=== PATIENT | male | born 1970 | race Asian ===

== ENCOUNTER 2018-07-14 14:45 | Emergency (ER) | payer MEDICARE ==
[~2018-07-14] VITALS: Ht 175.3 cm; Wt 115.0 kg
[~2018-07-14 14:45] MED LIST: ALLOPURINOL100 MG PO; AMLODIPINE10 MG PO; CLONIDINE0.1 MG PO; CLONIDINE0.3 MG OR; COLCHICINE0.6 MG PO; KALEXATE OR; MEDDOSEPAK OR; PREDNISONE10 MG PO; STERAPRED OR; STERAPRED5 MG OR; TOPROL XL25 M1 PO; TOPROL XL50 MG PO; ZEMPLAR1 MCG PO
[2018-07-14] MEDS ORDERED: ASTAGRAF XL1 MG PO (15:33)
[2018-07-14 16:08] LABS: HEMATOCRIT 45.4 % (39.0-50.0); HEMOGLOBIN 15.5 g/dl (14.0-18.0); IMMATURE GRANULOCYTES 0.3 % (0.0-5.0); MEAN CELL VOLUME 94.2 fL CALC (80.0-100.0); MEAN CORPUSCULAR HGB 32.2 pG CALC (26.0-32.0); MEAN CORPUSCULAR HGB CONC 34.1 g/L CALC (32.0-36.0); NEUT# 2.29 thou/uL (1.82-7.42); RED BLOOD COUNT 4.82 mill/uL (4.70-6.10); RED CELL DISTRI WIDTH 12.6 % (11.5-15.5)
[2018-07-14 16:28] LABS: ALBUMIN 4.6 g/dL (3.2-5.0); BILIRUBIN, TOTAL 0.8 mg/dL (0.0-1.4); BUN 22 mg/dL (9-20); CARBON DIOXIDE 27 mmol/l (22-30); CHLORIDE 97 mmol/l (95-108); TOTAL PROTEIN 7.9 g/dL (6.3-8.2)
[2018-07-14 16:32] LABS: ALKALINE PHOSPHATASE 109 u/l (38-126); ANION GAP 16 (6-22 (CALC)); BUN/CREATININE RATIO 18 (12-20 (CALC)); CREATININE 1.2 mg/dL (0.7-1.3); GFR > 60 ML/MIN (>=60 (CALC)); GFR FOR AFR.AMER. > 60 ML/MIN (>=60 (CALC)); POTASSIUM 3.5 mmol/l (3.5-5.1); SGOT/AST 62 u/l (17-59); SODIUM 136 mmol/l (137-146)
[2018-07-14] MEDS ORDERED: VALCYTE450 MG PO (17:02)
[2018-07-14] MEDS ORDERED: MYFORTIC360 MG PO (17:02)
[2018-07-14] MEDS ORDERED: METOPROL TAR25 MG PO (17:03)
[2018-07-14] MEDS ORDERED: FAMOTIDINE20 M1 PO (17:03)
[2018-07-14] MEDS ORDERED: NIFEDIPINE30 MG PO (17:03)
[2018-07-14] MEDS ORDERED: FUROSEMIDE20 MG PO (17:04)
[2018-07-14 18:14] LABS: URINE BILIRUBIN - DIPSTICK NEGATIVE (NEGATIVE); URINE BLOOD DIPSTICK NEGATIVE (NEGATIVE); URINE COLOR YELLOW; URINE GLUCOSE - DIPSTICK NEGATIVE (NEGATIVE); URINE KETONE NEGATIVE (NEGATIVE); URINE LEUK ESTERASE NEGATIVE (Negative); URINE NITRITE - DIPSTICK NEGATIVE (Negative); URINE PH 6.5 (4.5-8.0); URINE PROTEIN - DIPSTICK NEGATIVE (NEG-TRACE); URINE UROBILINOGEN - DIPSTICK 0.2 E.U./dL (0.2)
[2018-07-14 18:15] LABS: URINE CLARITY CLEAR
[2018-07-14 19:35] VITALS: BP 137/78
== END 2018-07-14 19:48 | disposition home or self-care (01) ==
LOC: ED 14:45
PROVIDERS: Emergency Medicine
DX: R05 Cough (principal); R61 Generalized hyperhidrosis; I10 Essential (primary) hypertension; Z94.0 Kidney transplant status; R68.83 Chills (without fever)

== ENCOUNTER 2018-09-14 21:29 | Emergency (ER) | payer MEDICARE ==
[~2018-09-14] VITALS: Ht 175.3 cm; Wt 112.0 kg
[~2018-09-14 21:29] MED LIST changes: +ASTAGRAF XL1 MG PO; +FAMOTIDINE20 M1 PO; +FUROSEMIDE20 MG PO; +METOPROL TAR25 MG PO; +MYFORTIC360 MG PO; +NIFEDIPINE30 MG PO; +VALCYTE450 MG PO
[2018-09-14 22:18] LABS: HEMATOCRIT 44.9 % (39.0-50.0); HEMOGLOBIN 15.1 g/dl (14.0-18.0); IMMATURE GRANULOCYTES 0.8 % (0.0-5.0); MEAN CELL VOLUME 93.3 fL CALC (80.0-100.0); MEAN CORPUSCULAR HGB 31.4 pG CALC (26.0-32.0); MEAN CORPUSCULAR HGB CONC 33.6 g/L CALC (32.0-36.0); NEUT# 5.19 thou/uL (1.82-7.42); RED BLOOD COUNT 4.81 mill/uL (4.70-6.10); RED CELL DISTRI WIDTH 12.3 % (11.5-15.5)
[2018-09-14 22:36] LABS: ALBUMIN 4.2 g/dL (3.2-5.0); ALKALINE PHOSPHATASE 125 u/l (38-126); ANION GAP 17 (6-22 (CALC)); BILIRUBIN, TOTAL 0.6 mg/dL (0.0-1.4); BUN 19 mg/dL (9-20); BUN/CREATININE RATIO 14 (12-20 (CALC)); CARBON DIOXIDE 22 mmol/l (22-30); CHLORIDE 102 mmol/l (95-108); CREATININE 1.3 mg/dL (0.7-1.3); GFR 59 ML/MIN (>=60 (CALC)); GFR FOR AFR.AMER. > 60 ML/MIN (>=60 (CALC)); POTASSIUM 3.7 mmol/l (3.5-5.1); SGOT/AST 29 u/l (17-59); SODIUM 137 mmol/l (137-146)
[2018-09-14] MEDS ORDERED: INDOMETHACIN25 MG PO (22:57)
[2018-09-14] MEDS ORDERED: MEDDOSEPAK PO (23:02)
[2018-09-14 23:24] VITALS: BP 120/72
== END 2018-09-14 23:26 | disposition home or self-care (01) ==
LOC: ED 21:29
PROVIDERS: Emergency Medicine
DX: M10.041 Idiopathic gout, right hand (principal); I10 Essential (primary) hypertension; Z94.0 Kidney transplant status

== ENCOUNTER 2018-11-19 21:39 | Emergency (ER) | payer MEDICARE ==
[~2018-11-19] VITALS: Ht 175.3 cm; Wt 111.0 kg
[~2018-11-19 21:39] MED LIST changes: +INDOMETHACIN25 MG PO; +MEDDOSEPAK PO
[2018-11-19 21:46] VITALS: BP 119/77
[2018-11-19 22:26] LABS: ANION GAP 16 (6-22 (CALC)); BUN 17 mg/dL (9-20); BUN/CREATININE RATIO 14 (12-20 (CALC)); CARBON DIOXIDE 21 mmol/l (22-30); CHLORIDE 103 mmol/l (95-108); CREATININE 1.2 mg/dL (0.7-1.3); GFR > 60 ML/MIN (>=60 (CALC)); GFR FOR AFR.AMER. > 60 ML/MIN (>=60 (CALC)); POTASSIUM 4.2 mmol/l (3.5-5.1); SODIUM 137 mmol/l (137-146)
[2018-11-19] MEDS ORDERED: PREDNISONE50 MG PO (22:36)
[2018-11-19] MEDS ORDERED: ZYLOPRIM300 MG PO (22:36)
[2018-11-19] MEDS ORDERED: COLCHICINE0.6 M2 PO (22:36)
== END 2018-11-19 22:47 | disposition home or self-care (01) ==
LOC: ED 21:39
PROVIDERS: Family Medicine
DX: M10.042 Idiopathic gout, left hand (principal); I10 Essential (primary) hypertension; Z94.0 Kidney transplant status

== ENCOUNTER 2020-12-31 15:46 | Emergency (ER) | payer OTHER, MEDICARE ==
[~2020-12-31] VITALS: Ht 175.3 cm; Wt 118.0 kg
[~2020-12-31 15:46] MED LIST changes: +COLCHICINE0.6 M2 PO; +PREDNISONE50 MG PO; +ZYLOPRIM300 MG PO
[2020-12-31] MEDS ORDERED: KEFLEX500 MG PO (17:54)
[2020-12-31 17:58] VITALS: BP 125/78
== END 2020-12-31 18:07 | disposition home or self-care (01) | DRG 935 ==
LOC: ED 15:46
PROC: 2W2RX4Z Dressing of Left Lower Leg using Bandage (ICD-10-PCS; principal; 2020-12-31)
DX: T24.202A Burn of second degree of unspecified site of left lower limb, except ankle and foot, initial encounter (principal); T25.212A Burn of second degree of left ankle, initial encounter; I10 Essential (primary) hypertension; M10.9 Gout, unspecified; T31.0 Burns involving less than 10% of body surface; X10.2XXA Contact with fats and cooking oils, initial encounter; Y93.89 Activity, other specified; Y92.511 Restaurant or cafe as the place of occurrence of the external cause; Y99.0 Civilian activity done for income or pay; Z94.0 Kidney transplant status

== ENCOUNTER 2022-01-10 10:35 | Emergency (ER) | payer SELFPAY ==
[~2022-01-10] VITALS: Ht 175.3 cm; Wt 127.2 kg
[~2022-01-10 10:35] MED LIST changes: +KEFLEX500 MG PO
[2022-01-10 10:40] VITALS: BP 115/64
[2022-01-10 11:01] VITALS: BP 103/65
[2022-01-10 11:31] VITALS: BP 124/70
[2022-01-10] MEDS ORDERED: PREDNISONE50 MG PO (11:48)
[2022-01-10 11:49] VITALS: BP 124/70
== END 2022-01-10 11:59 | disposition home or self-care (01) ==
LOC: ED 10:35
DX: M25.531 Pain in right wrist (principal); I10 Essential (primary) hypertension; M10.9 Gout, unspecified; Z94.0 Kidney transplant status

== ENCOUNTER 2023-02-11 07:38 | Emergency (ER) | payer SELFPAY ==
[2023-02-11] VITALS (7 sets, daily range): BP systolic 126–150; BP diastolic 77–96
[~2023-02-11] VITALS: Ht 175.3 cm; Wt 127.0 kg
[2023-02-11 08:10] LABS: BASO% 0.3 % (0-3); EOS% 2.5 % (0-8); HEMATOCRIT 47.9 % (39.0-50.0); HEMOGLOBIN 15.4 g/dl (14.0-18.0); IMMATURE GRANULOCYTES 0.3 % (0.0-5.0); LYMPH% 17.5 % (15-41); MEAN CELL VOLUME 99.2 fL CALC (80.0-100.0); MEAN CORPUSCULAR HGB 31.9 pG CALC (26.0-32.0); MEAN CORPUSCULAR HGB CONC 32.2 g/dL CAL (32.0-36.0); NEUT# 4.15 thou/uL (1.82-7.42); NEUT% 70.4 % (42-76); RED BLOOD COUNT 4.83 mill/uL (4.70-6.10); RED CELL DISTRI WIDTH 13.8 % (11.5-15.5)
[2023-02-11] MEDS ORDERED: ZYLOPRIM300 MG PO (08:14)
[2023-02-11] MEDS ORDERED: METOPROLOL TART50 MG PO (08:49)
[2023-02-11] MEDS ORDERED: NIFEDIPINE ER90 M1 PO (08:49)
[2023-02-11 08:51] LABS: ALBUMIN 4.3 g/dL (3.2-5.0); ALKALINE PHOSPHATASE 72 u/l (38-126); ANION GAP 14 (6-22 (CALC)); BILIRUBIN, TOTAL 0.7 mg/dL (0.2-1.3); BUN 20 mg/dL (9-20); BUN/CREATININE RATIO 16 (12-20 (CALC)); CARBON DIOXIDE 29 mmol/l (22-30); CHLORIDE 101 mmol/l (95-108); CREATININE 1.2 mg/dL (0.7-1.3); GFR FOR AFR.AMER. > 60 ML/MIN (>=60 (CALC)); GFR OTHER RACES > 60 ML/MIN (>=60 (CALC)); POTASSIUM 4.4 mmol/l (3.5-5.1); SGOT/AST 35 u/l (17-59); SODIUM 139 mmol/l (137-146); TOTAL PROTEIN 7.8 g/dL (6.3-8.2)
== END 2023-02-11 09:17 | disposition home or self-care (01) | DRG 951 ==
LOC: ED 07:38
PROVIDERS: Family Medicine
DX: Z76.0 Encounter for issue of repeat prescription (principal); Z94.0 Kidney transplant status; I10 Essential (primary) hypertension; T44.7X6A Underdosing of beta-adrenoreceptor antagonists, initial encounter; T46.1X6A Underdosing of calcium-channel blockers, initial encounter; Z91.128 Patient's intentional underdosing of medication regimen for other reason